=== PATIENT | female | born 2000 | race African-American/Black ===

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

== ENCOUNTER 2022-03-29 05:54 | Emergency (ER) | payer OTHER, SELFPAY ==
[2022-03-29] MEDS ORDERED: Ondansetron ODT 4 MG TAB ONE (07:05)
[2022-03-29] MEDS ORDERED: Acetaminophen 500 MG TAB ONE (07:05)
[2022-03-29 08:07] LABS: Bilirubin Negative (Negative); Blood, Urine Negative (Negative); Clarity Clear (Clear); Glucose, Urine (Dipstick) Normal (Negative); Ketone, Urine Negative (Negative); Leukocyte Negative Leu/uL (Negative); Nitrite Negative (Negative); Protein, Urine (Dipstick) Negative (Neg-Trace); Specific Gravity, Urine 1.024 (1.002-1.036); Urobilinogen Normal mg/dL (Less than 2)
[2022-03-29 08:14] LABS: Pregnancy Test - Urine (BHCG) Negative (Negative); Pregu Control Background? CLEAR/WHITE (CLR/WHITE); Pregu Control Bar Appear? YES (CONTROL BAR); Specific Gravity 1.024 (1.002-1.036)
== END 2022-03-29 08:33 | disposition home or self-care (01) ==
LOC: ERS 05:54
DX: H72.91 Unspecified perforation of tympanic membrane, right ear (principal); J06.9 Acute upper respiratory infection, unspecified; J45.909 Unspecified asthma, uncomplicated; D64.9 Anemia, unspecified
CPT/HCPCS: 81003; 81025; 87081; 87430; 87804; 99283; Q0162

== ENCOUNTER 2022-04-03 21:59 | Emergency (ER) | payer OTHER ==
[2022-04-03] MEDS ORDERED: Ondansetron PF 4 MG/2 ML Vial ONE (22:39)
[2022-04-03 22:43] LABS: #Basophils 0.1 thou/uL (0.0-0.2); #Eosinphils 0.1 thou/uL (0.0-0.7); #Lymphocytes 2.4 thou/uL (1.20-3.40); #Monocytes 0.8 thou/uL (0.11-0.59); #Neutrophils 3.3 thou/uL (1.40-6.50); %Basophils 1.4 % (0.0-1.0); %Lymphocytes 35.9 % (28.0-48.0); %Monocytes 12.2 % (0.0-4.0); %Neutrophils 48.5 % (31.0-61.0); Mean Corpuscular HGB CONC 32.5 g/dL (32.0-36.0); Mean Corpuscular Hemoglobin 29.3 pg (25.0-35.0); Mean Corpuscular Volume 90.1 fL (78.0-98.0); Platelet Count 394 thou/uL (130-400); RBC Distribution Width 12.5 % (11.5-14.5); Red Blood Cell (RBC) Count 4.44 mill/uL (4.00-5.20); White Blood Cell (WBC) Count 6.7 thou/uL (4.8-10.8)
[2022-04-03 23:02] LABS: BHCG - Serum Negative (NEGATIVE); Pregs Control Background? CLEAR/WHITE (CLR/WHITE); Pregs Control Bar Appear? YES (CONTROL BAR)
[2022-04-03 23:12] LABS: ALT (SGPT) Less than 7 U/L (8-55); AST (SGOT) 17 U/L (5-30); Alkaline Phosphatase 71 U/L (40-100); Anion Gap 13 mmol/L (10-20); BUN (Urea Nitrogen) 9 mg/dL (8.4-21.0); Bilirubin, Total 0.6 mg/dL (0.2-1.2); Calc. Creatinine Clearance 0 mL/min (70-130); Calcium 8.9 mg/dL (7.8-10.44); Carbon Dioxide 21 mmol/L (22-29); Chloride 107 mmol/L (98-107); Globulin 3.3 g/dL (2.4-3.5); Glucose 90 mg/dL (70-105); Lipase 14 U/L (8-78); Protein, Total 7.3 g/dL (6.0-8.3); Sodium 137 mmol/L (136-145)
[2022-04-03] MEDS ORDERED: diphenhydrAMINE 50 MG/ML VIAL ONE (23:25)
[2022-04-03] MEDS ORDERED: Metoclopramide HCl 10 MG/2 ML VIAL ONE (23:25)
[2022-04-03 23:49] LABS: Bacteria/HPF None Seen HPF (None Seen); Bilirubin Negative (Negative); Blood, Urine 1+ (Negative); Clarity Clear (Clear); Glucose, Urine (Dipstick) Normal (Negative); Ketone, Urine Negative (Negative); Leukocyte Negative Leu/uL (Negative); Nitrite Negative (Negative); Protein, Urine (Dipstick) 20 mg/dL (Neg-Trace); RBC/HPF 0-3 HPF (0-3); Specific Gravity, Urine 1.026 (1.002-1.036); Squamous Epithelial 0-3 HPF (0-3); Urobilinogen Normal mg/dL (Less than 2); WBC/HPF 0-3 HPF (0-3)
== END 2022-04-04 00:56 | disposition home or self-care (01) ==
LOC: ERS 21:59
DX: R55 Syncope and collapse (principal)
CPT/HCPCS: 36415; 71045; 80053; 81003; 81015; 83690; 84703; 85025; 87086; 93005; 96374; 96375; J1200; J2405; J2765

== ENCOUNTER 2024-03-21 14:03 | Emergency (ER) | payer MEDICAID, BC | END 2024-03-21 16:21 | disposition home or self-care (01) | LOC: ERS 14:03 | DX: H10.31 Unspecified acute conjunctivitis, right eye (principal) | CPT/HCPCS: 99283 ==

== ENCOUNTER 2024-04-01 21:39 | Emergency (ER) | payer MEDICAID, BC ==
[2024-04-02] MEDS ORDERED: Ketorolac Tromethamine 30 MG (1 mL) VIAL ONE (03:24)
== END 2024-04-02 04:50 | disposition home or self-care (01) ==
LOC: ERS 21:39
DX: G44.209 Tension-type headache, unspecified, not intractable (principal); J30.2 Other seasonal allergic rhinitis
CPT/HCPCS: 93005; J1885

== ENCOUNTER 2024-06-18 20:22 | Emergency (ER) | payer BC, OTHER ==
[2024-06-18] MEDS ORDERED: diphenhydrAMINE 25 MG CAP ONE (20:41)
[2024-06-18] MEDS ORDERED: Famotidine 20 MG TAB ONE (20:42)
== END 2024-06-18 21:32 | disposition home or self-care (01) ==
LOC: ERS 20:22
DX: T78.40XA Allergy, unspecified, initial encounter (principal)
CPT/HCPCS: 99284

== ENCOUNTER 2024-09-25 19:02 | Emergency (ER) | payer BC ==
[2024-09-25] MEDS ORDERED: Famotidine 20 MG TAB ONE (19:43)
[2024-09-25 20:20] LABS: #Basophils 0.04 10x3/uL (0.0-0.2); %Basophils 0.7 % (0.0-1.0); %Eosinophils 3.2 % (0.0-10.0); %Lymphocytes 34.1 % (21.0-51.0); %Neutrophils 50.8 % (42.0-75.0); Hematocrit 39.5 % (36.0-47.0); Hemoglobin 12.7 g/dL (12.0-16.0); Mean Corpuscular HGB CONC 32.2 g/dL (32.0-36.0); Mean Corpuscular Hemoglobin 28.1 pg (27.0-31.0); Mean Corpuscular Volume 87.4 fL (78.0-98.0); Mean Platelet Volume 10.1 fL (7.4-10.4); Platelet Count 383 10x3/uL (130-400); RBC Distribution Width 12.7 % (11.5-14.5); Red Blood Cell (RBC) Count 4.52 mill/uL (4.20-5.40)
[2024-09-25 20:36] LABS: BHCG - Serum Negative (NEGATIVE); Pregs Control Background? CLEAR/WHITE (CLR/WHITE); Pregs Control Bar Appear? YES (CONTROL BAR)
[2024-09-25 20:37] LABS: ALT (SGPT) 7 U/L (8-55); AST (SGOT) 13 U/L (5-34); Albumin 3.4 g/dL (3.5-5.0); Alkaline Phosphatase 55 U/L (40-110); Anion Gap 12 mmol/L (10-20); BUN (Urea Nitrogen) 10 mg/dL (7.0-18.7); Bilirubin, Total 0.5 mg/dL (0.2-1.2); Calc. Creatinine Clearance 0 mL/min (70-130); Calcium 8.5 mg/dL (7.8-10.44); Carbon Dioxide 19 mmol/L (22-29); Chloride 110 mmol/L (98-107); Estimated GFR 117; Globulin 3.5 g/dL (2.4-3.5); Glucose 76 mg/dL (70-105); Lipase 13 U/L (8-78); Potassium 3.5 mmol/L (3.5-5.1); Protein, Total 6.9 g/dL (6.0-8.3); Sodium 137 mmol/L (136-145)
[2024-09-25 20:42] LABS: Troponin I Less than 0.010 ng/mL (< 0.028)
== END 2024-09-25 22:26 | disposition home or self-care (01) ==
LOC: ERS 19:02
DX: R07.89 Other chest pain (principal)
CPT/HCPCS: 36415; 71045; 80053; 83690; 84484; 84703; 85025; 85379; 93005

== ENCOUNTER 2024-10-22 22:02 | Emergency (ER) | payer BC ==
[2024-10-22 22:59] LABS: #Basophils 0.05 10x3/uL (0.0-0.2); %Basophils 0.8 % (0.0-1.0); %Eosinophils 1.1 % (0.0-10.0); %Lymphocytes 33.3 % (21.0-51.0); %Monocytes 14.4 % (0.0-10.0); %Neutrophils 50.2 % (42.0-75.0); Hematocrit 32.8 % (36.0-47.0); Hemoglobin 10.6 g/dL (12.0-16.0); Mean Corpuscular HGB CONC 32.3 g/dL (32.0-36.0); Mean Corpuscular Hemoglobin 28.1 pg (27.0-31.0); Mean Platelet Volume 9.8 fL (7.4-10.4); Platelet Count 391 10x3/uL (130-400); RBC Distribution Width 12.5 % (11.5-14.5); Red Blood Cell (RBC) Count 3.77 mill/uL (4.20-5.40)
[2024-10-22 23:22] LABS: ALT (SGPT) 7 U/L (8-55); AST (SGOT) 12 U/L (5-34); Albumin 3.1 g/dL (3.5-5.0); Alkaline Phosphatase 51 U/L (40-110); Anion Gap 11 mmol/L (10-20); BUN (Urea Nitrogen) 12 mg/dL (7.0-18.7); Bilirubin, Total 0.4 mg/dL (0.2-1.2); Calc. Creatinine Clearance 0 mL/min (70-130); Calcium 8.5 mg/dL (7.8-10.44); Carbon Dioxide 22 mmol/L (22-29); Chloride 108 mmol/L (98-107); Estimated GFR 98; Globulin 3.2 g/dL (2.4-3.5); Glucose 100 mg/dL (70-105); Lipase 16 U/L (8-78); Potassium 3.9 mmol/L (3.5-5.1); Protein, Total 6.3 g/dL (6.0-8.3); Sodium 137 mmol/L (136-145)
[2024-10-22 23:28] LABS: Troponin I Less than 0.010 ng/mL (< 0.028)
[2024-10-22] MEDS ORDERED: Ibuprofen 200 MG TAB ONE (23:41)
[2024-10-23 01:38] LABS: BHCG - Serum Negative (NEGATIVE); Pregs Control Background? CLEAR/WHITE (CLR/WHITE); Pregs Control Bar Appear? YES (CONTROL BAR)
== END 2024-10-23 01:43 | disposition home or self-care (01) ==
LOC: ERS 22:02
DX: R07.9 Chest pain, unspecified (principal); J45.909 Unspecified asthma, uncomplicated; Z79.899 Other long term (current) drug therapy
CPT/HCPCS: 36415; 71045; 80053; 83690; 84484; 84703; 85025; 93005

== ENCOUNTER 2024-12-10 12:58 | Emergency (ER) | payer BC ==
[2024-12-10] MEDS ORDERED: Docusate Sodium 100 MG/10 ML UDCUP FS SCH (14:00)
== END 2024-12-10 15:08 | disposition home or self-care (01) ==
LOC: ERS 12:58
DX: H61.21 Impacted cerumen, right ear (principal)
CPT/HCPCS: 69209; 99282

== ENCOUNTER 2025-06-22 11:28 | Emergency (ER) | payer BC ==
[2025-06-22 13:21] LABS: Bacteria/HPF None Seen HPF (None Seen); CAUTI Indications for Culture Pelvic or flank pain; Glucose, Urine (Dipstick) Normal (Negative); Leukocyte Negative Leu/uL (Negative); Protein, Urine (Dipstick) Negative (Neg-Trace); RBC/HPF 0-3 HPF (0-3); Specific Gravity, Urine 1.024 (1.002-1.036); WBC/HPF 0-3 HPF (0-3)
[2025-06-22 13:36] LABS: Pregnancy Test - Urine (BHCG) Negative (Negative); Urine Culture Reflex No No
[2025-06-22 13:37] LABS: Pregu Control Background? CLEAR/WHITE (CLR/WHITE); Pregu Control Bar Appear? YES (CONTROL BAR)
[2025-06-23 05:48] LABS: Chlamydia by PCR, Vaginal Swab Not Detected (NotDetected); GC by PCR, Vaginal Swab Not Detected (NotDetected)
== END 2025-06-22 13:43 | disposition home or self-care (01) ==
LOC: ERS 11:28
DX: N76.0 Acute vaginitis (principal); L24.9 Irritant contact dermatitis, unspecified cause
CPT/HCPCS: 81001; 81025; 87480; 87491; 87510; 87591; 87660; 99283

== ENCOUNTER 2025-07-15 13:02 | Emergency (ER) | payer BC ==
[2025-07-15] MEDS ORDERED: cefTRIAXone (ROCEPHIN) 250 MG VIAL ONE (15:54)
[2025-07-15] MEDS ORDERED: Azithromycin 250 MG TAB ONE (15:54)
[2025-07-15 16:43] LABS: Bacteria/HPF None Seen HPF (None Seen); CAUTI Indications for Culture Pelvic or flank pain; Glucose, Urine (Dipstick) Normal (Negative); Leukocyte Negative Leu/uL (Negative); Protein, Urine (Dipstick) Negative (Neg-Trace); RBC/HPF None Seen HPF (0-3); Specific Gravity, Urine 1.010 (1.002-1.036); WBC/HPF 0-3 HPF (0-3)
[2025-07-15 16:46] LABS: Urine Culture Reflex No No
[2025-07-16 03:43] LABS: Chlamydia by PCR, Vaginal Swab DETECTED (NotDetected); GC by PCR, Vaginal Swab Not Detected (NotDetected)
== END 2025-07-15 16:30 | disposition home or self-care (01) ==
LOC: ERS 13:02
DX: N76.0 Acute vaginitis (principal); Z20.2 Contact with and (suspected) exposure to infections with a predominantly sexual mode of transmission; J45.909 Unspecified asthma, uncomplicated; Z79.51 Long term (current) use of inhaled steroids
CPT/HCPCS: 81001; 87480; 87491; 87510; 87591; 87660; 96372; 99283; J0696

== ENCOUNTER 2025-11-22 12:50 | Emergency (ER) | payer BC | END 2025-11-22 13:36 | disposition home or self-care (01) | LOC: ERS 12:50 | DX: J06.9 Acute upper respiratory infection, unspecified (principal) | CPT/HCPCS: 87081; 87430; 99283 ==